=== PATIENT | male | born 1995 | race Hispanic/Latino ===

== ENCOUNTER → 2024-05-16 13:29 | Outpatient (REF) | payer MEDICARE, OTHER, SELFPAY | LOC: HWCARD 13:29 | PROVIDERS: ATTENDING PHYSICIAN Registered Nurse; FAMILY PHYSICIAN Registered Nurse | DX: R94.31 Abnormal electrocardiogram [ECG] [EKG] (principal) | CPT/HCPCS: 93005 ==